=== PATIENT | female | born 1985 | race Caucasian/White ===

== ENCOUNTER 2016-10-02 11:05 | Day surgery (SDC) | payer OTHER ==
[2016-09-29 16:49] VITALS: BMI 27.4
[~2016-10-02 11:05] MED LIST: LACTATED RINGERS 1,000 ML IV SCH
[2016-10-02 12:17] VITALS: RESP 16; TEMP 98.1
[2016-10-02] MEDS ORDERED: LIDOCAINE 1% 20 ML VIAL (10MG/ML) FOR IV START INTRADERMA ONE (12:33)
[2016-10-02] MEDS ORDERED: LIDOCAINE 1% INJ 10MG/ML (20 ML MDV) ONE (12:42)
[2016-10-02] MEDS ORDERED: PROPOFOL 10 MG/ML 20 ML VIAL IV ONE (12:42)
--- NOTE | 2016-10-02 12:51 | P.PCN ---
Date of Procedure: 10/02/16 Procedure(s) Performed: BRIEF HISTORY: Patient is a 31-year-old, pleasant, white female, scheduled for an upper endoscopy as a part of evaluation of chronic dyspeptic symptoms for the last few months duration. She does have heartburn has been on omeprazole 40 mg daily as well as Pepcid 20 mg daily despite which still has some symptoms almost on a daily basis. Chronic persistent nausea. PROCEDURE PERFORMED: Esophagogastroduodenoscopy with biopsy. PREOPERATIVE DIAGNOSIS: Chronic dyspepsia and heartburn. IV sedation per anesthesia. PROCEDURE: After informed consent was obtained, the patient was brought into the endoscopy unit. IV conscious sedation was administered by Anesthesia under continuous monitoring. Initially the Olympus GIF-140 video endoscope was inserted into the mouth. Esophagus intubated without any difficulty. It was gradually advanced into the stomach and duodenum and carefully examined. The bulb and the second part of the duodenum appeared normal. Biopsies were done from here to rule out celiac disease. The scope at this time was withdrawn to the stomach, adequately insufflated with air, and upon careful examination, mucosa of the antrum, had mild diffuse gastritis and biopsies were done from this area. The body, cardia and the fundus appeared normal. The scope was then withdrawn into the esophagus. The GE junction was located at 37 cm from the incisors. The esophagus appeared normal. There were no erosions or ulcerations seen and the patient tolerated the procedure well. IMPRESSION: 1. Mild antral gastritis. 2. No evidence of esophagitis, or Mortensen's esophagus. RECOMMENDATIONS: The findings of this examination were discussed with the patient as well as her family. She was advised to follow with the biopsy results. She will continue with her current medications and follow antireflux measures..
[2016-10-02 13:25] VITALS: BP 107/72; PULSE 61
== END 2016-10-02 13:59 | disposition home or self-care (01) ==
LOC: ORWHC2ENDO 11:05
PROVIDERS: ATTEND Internal Medicine Gastroenterology
DX: K21.0 Gastro-esophageal reflux disease with esophagitis (principal); K29.50 Unspecified chronic gastritis without bleeding; I49.9 Cardiac arrhythmia, unspecified; Z79.899 Other long term (current) drug therapy; Z79.3 Long term (current) use of hormonal contraceptives; Z79.51 Long term (current) use of inhaled steroids
CPT/HCPCS: 81025; 88305; 88342; 43239; J2001; J2704